=== PATIENT | male | born 1970 | race African-American/Black ===

== ENCOUNTER 2017-12-10 02:56 | Emergency (ER) | payer OTHER ==
[~2017-12-10] VITALS: Ht 162.6 cm; Wt 69.4 kg
[2017-12-10 03:31] VITALS: BP 182/97
--- NOTE | 2017-12-10 03:49 | Emergency Room Report ---
History of Present Illness General Chief Complaint: Skin Rash/Abscess Source: Patient Present Illness HPI Patient has 2 bumps - one on neck and another on abdomen. Feels they might be infected. They have been present for several months. He occasionally expresses pus from the abdominal wound. The neck is not tender at this time, but is large and he wants to have this treated. No fevers. No NVD. No dysuria. Allergies: Coded Allergies: No Known Allergies (Unverified , 12/10/17) Patient History Past Medical History: see triage record Social History: Reports: smoking Social History Narrative with sig other Reviewed Nursing Documentation: PMH: Agreed; PSxH: Agreed Nursing Documentation-PMH Hx Hypertension: Yes Hx Diabetes: Yes Review of Systems All Other Systems: negative except mentioned in HPI Physical Exam Vital Signs Date Time Temp Pulse Resp B/P (MAP) Pulse Ox O2 Delivery O2 Flow Rate FiO2 12/10/17 03:26 98.0 67 18 170/113 98 Room Air 98.1 Sp02 EP Interpretation: reviewed, normal General Appearance: well appearing, no apparent distress Head: normocephalic, atraumatic Eyes: bilateral eye normal inspection, bilateral eye PERRL ENT: hearing grossly normal, normal voice, moist mucus membranes Neck: full range of motion, supple, other - soft nodule R occipal area, no erythema Respiratory: no respiratory distress, speaking full sentences Cardiovascular #1: normal peripheral pulses, regular rate, rhythm Cardiovascular #2: 2+ radial (R) Gastrointestinal: normal inspection, non tender, soft, non-distended, no guarding, other - lesoin, see skin Musculoskeletal: back normal, digits/nails normal, gait/station normal, normal range of motion Neurologic: alert, oriented x3, normal gait, grossly normal Psychiatric: mood/affect normal Skin: other - see neck. Also lesion L lower abdomen, no erythema or fluctuance. Chronic changes Medical Decision Making Diagnostic Impression: Primary Impression: Sebaceous cyst Additional Impressions: Cellulitis Qualified Codes: L03.311 - Cellulitis of abdominal wall HTN (hypertension) Qualified Codes: I10 - Essential (primary) hypertension ER Course Patient presents with 2 lesions, one on neck and another on abdomen. DDx; abscess, sebacious cyst, cellulitis. Chronic problems with consideration for acute infection. Antibiotics indicated. Neck lesion not infected at this time. Abdominal lesion questionable infected. Lesions not large enough for I and D. Discussed need for surgical treatment of neck lesion and possible need in future for I and D of abd lesion. BP high. Given dose of benazepril (home dose unknown). Discussed need for continued taking of medicine and follow up with PMD. Patient stable for outpatient observation and treatment Status: improved Disposition: HOME, SELF-CARE Condition: Improved Scripts Trimethoprim/Sulfamethoxazole 160/800* (BACTRIM DS TABLET*) 1 Each Tablet 1 TAB ORAL Q12H, #14 TAB 0 Refills Prov: Cedric Beverly M.D. 12/10/17 Bacitracin (Bacitracin) 28.4 Gm Oint...g. 1 APPLIC TOPIC BID, #20 GM Prov: Cedric Beverly M.D. 12/10/17 Cedric Beverly M.D. Dec 10, 2017 03:49
[2017-12-10] MEDS ORDERED: BACTRIM DS TAB1 EAC1 ORAL (03:55)
[2017-12-10] MEDS ORDERED: BACITRACIN15 GM TOPIC (03:55)
[2017-12-10] MEDS ORDERED: Bacitracin Oint UD TOPIC ONE (04:00)
[2017-12-10] MEDS ORDERED: Benazepril 10mg tab ORAL ONE (04:00)
[2017-12-10] MEDS ORDERED: Bactrim-DS 1 tab ORAL ONE (04:00)
[2017-12-10 04:08] VITALS: BP 174/118
== END 2017-12-10 04:00 | disposition home or self-care (01) ==
LOC: EMR 03:51
DX: L72.3 Sebaceous cyst (principal); L03.311 Cellulitis of abdominal wall; I10 Essential (primary) hypertension; E11.9 Type 2 diabetes mellitus without complications
CPT/HCPCS: 99284